=== PATIENT | female | born 1940 | race Caucasian/White ===

== ENCOUNTER 2019-01-04 06:23 | Day surgery (SDC) | payer OTHER ==
[~2019-01-04 06:23] MED LIST: ALPR.5; Aspir 8181 MG; BENADRYL25 MG; CETI5; FURO20; GABA300; HYDR1TAB94; LOSA50; METF500 PO; Metrocream45 GM; Norvasc10 MG; OXYB5 PO; POTA10T
--- NOTE | 2019-01-04 07:35 | NUR ---
01/04/19 0735 Beatriz Sinclair 1ST IV ATTEMPT IN THE RIGHT HAND WITH 18G; IV BLEW. IV SUCCESFFULLY STARTED IN THE RIGHT FOREARM. PT TOLERATED BOTH ATTEMPTS WELL.
--- NOTE | 2019-01-04 09:57 | NUR ---
01/04/19 0957 Gabriel Coates PT RESTING ON RECLINER. PT DENIES ANY PAIN AT THIS TIME. PT TOLERATING SNACKS. VS WNL. FAMILY MEMBERIN THE ROOM CONVERSING WITH PT. POLAR PACK INTACT. WILL CONTINUE TO MONITOR.
== END 2019-01-04 11:02 | disposition home or self-care (01) ==
LOC: ORSCSDS 06:23
PROVIDERS: Orthopaedic Surgery
PROC: 0LQ24ZZ Repair Left Shoulder Tendon, Percutaneous Endoscopic Approach (ICD-10-PCS; principal; 2019-01-04 07:30)
PROC: 0RBK4ZZ Excision of Left Shoulder Joint, Percutaneous Endoscopic Approach (ICD-10-PCS; principal; 2019-01-04 07:30)
PROC: 0RNK4ZZ Release Left Shoulder Joint, Percutaneous Endoscopic Approach (ICD-10-PCS; principal; 2019-01-04 07:30)
DX: M19.012 Primary osteoarthritis, left shoulder (principal); M75.122 Complete rotator cuff tear or rupture of left shoulder, not specified as traumatic; S46.102A Unspecified injury of muscle, fascia and tendon of long head of biceps, left arm, initial encounter; M75.52 Bursitis of left shoulder; I10 Essential (primary) hypertension; G47.33 Obstructive sleep apnea (adult) (pediatric); E11.9 Type 2 diabetes mellitus without complications; F41.9 Anxiety disorder, unspecified; Z79.899 Other long term (current) drug therapy
CPT/HCPCS: 82947; C1713; J0171; J1100; J1885; J2250; J2405; J2704; J2795; J3010; J7120

== ENCOUNTER 2020-02-15 08:14 | Day surgery (SDC) | payer OTHER ==
[~2020-02-15] VITALS: Ht 172.7 cm; Wt 59.3 kg
[~2020-02-15 08:14] MED LIST changes: -ALPR.5; +ALPR.5 PO; -BENADRYL25 MG; +BENADRYL25 MG PO; -CETI5; +CETI5 PO; +Caltrate-600 W1 EACH PO; -FURO20; +FURO20 PO; -GABA300; +GABA300 PO; +HIPREX1 G1 PO; -HYDR1TAB94; +HYDR1TAB94 PO; +KEFLEX500 MG PO; +LACT PO; -LOSA50; +LOSA50 PO; +METAMUCIL POWD575 GM PO; +METO5A PO; +MIRALAX17 GM PO; -Norvasc10 MG; +Norvasc10 MG PO; +OMEP20ER PO; +ONDA8 PO; +PENVK250 PO; -POTA10T; +POTA10T PO; +Robaxin750 MG PO
[2020-02-15] MEDS ORDERED: PENVK250 PO (09:04)
== END 2020-02-15 11:30 | disposition home or self-care (01) ==
LOC: ORSCSDS 08:14
PROVIDERS: Orthopaedic Surgery
PROC: 3E0U3BZ Introduction of Anesthetic Agent into Joints, Percutaneous Approach (ICD-10-PCS; principal; 2020-02-15 09:30)
PROC: 0JBL0ZZ Excision of Right Upper Leg Subcutaneous Tissue and Fascia, Open Approach (ICD-10-PCS; principal; 2020-02-15 09:30)
DX: M77.9 Enthesopathy, unspecified (principal); R22.41 Localized swelling, mass and lump, right lower limb; L92.8 Other granulomatous disorders of the skin and subcutaneous tissue; I10 Essential (primary) hypertension; E11.9 Type 2 diabetes mellitus without complications; K21.9 Gastro-esophageal reflux disease without esophagitis; Z79.84 Long term (current) use of oral hypoglycemic drugs; Z79.899 Other long term (current) drug therapy
CPT/HCPCS: 82947; J0171; J0690; J1200; J2250; J2310; J2405; J3010; J3301; J7120

== ENCOUNTER 2020-05-17 06:14 | Observation (INO) | payer OTHER, SELFPAY ==
[~2020-05-17] VITALS: Ht 157.5 cm; Wt 65.8 kg
[~2020-05-17 06:14] MED LIST changes: +AMLO5 PO; -Aspir 8181 MG; +Aspir 8181 MG PO; -Metrocream45 GM; +Metrocream45 GM VAG; -Norvasc10 MG PO
[2020-05-17 06:43] LABS: BASOPHILS ABSOLUTE AUTO 0.05 K/mm3 (0.00-0.23); BASOPHILS PERCENT AUTO 1 % (0-2); EOSINOPHILS ABSOLUTE AUTO 0.23 K/mm3 (0.00-0.68); EOSINOPHILS PERCENT AUTO 5 % (0-6); Hematocrit 42.5 % (33.0-51.0); Hemoglobin 14.3 g/dL (11.5-16.0); IMMATURE GRAN ABSOLUTE AUTO 0.02 K/mm3 (0.00-0.10); IMMATURE GRAN PERCENT AUTO 0 % (0-1); LYMPHOCYTES ABSOLUTE AUTO 2.06 K/mm3 (0.84-5.20); LYMPHOCYTES PERCENT AUTO 40 % (21-46); MONOCYTES PERCENT AUTO 10 % (4-13); Mean Corpuscular HGB 29.7 pg (26.0-34.0); Mean Corpuscular HGB Conc 33.6 g/dL (31.5-36.5); Mean Corpuscular Volume 88 fL (80-100); Mean Platelet Volume 9.2 fL (9.1-12.4); NEUTROPHILS ABSOLUTE AUTO 2.26 K/mm3 (1.96-9.15); NEUTROPHILS PERCENT AUTO 44 % (41-73); Platelet Count 241 K/mm3 (150-400); RDW Coefficient Variation 13.2 % (11.7-14.2); RDW Standard Deviation 42.8 fL (35.1-46.3); Red Blood Cell Count 4.82 M/mm3 (3.80-5.20); White Blood Cell Count 5.12 K/mm3 (4.00-11.30)
[2020-05-17 07:02] LABS: Alanine Aminotransfer (ALT/SGP 40 U/L (12-78); Albumin, Blood 4.1 g/dL (3.4-5.0); Albumin/Globulin Ratio 1.3 (0.8-1.8); Alk Phos 108 U/L (50-136); Anion Gap 8 mmol/L (6-16); Aspartate Aminotrans (AST/SGOT 25 U/L (12-37); Bilirubin, Total 0.4 mg/dL (0.1-1.0); Blood Urea Nitrogen 6 mg/dL (8-24); Bun/Creatinine Ratio 13.6 (12.0-20.0); CO2, Blood 25 mmol/L (21-32); Calcium, Blood 8.9 mg/dL (8.5-10.1); Chloride, Blood 103 mmol/L (98-108); Creatinine, Blood 0.44 mg/dL (0.40-1.00); Globulin, Blood 3.2 g/dL (2.2-4.0); Glomerular Filtration Rate >60 (60-); Glucose, Blood 135 mg/dL (70-99); Potassium, Blood 3.8 mmol/L (3.5-5.5); Sodium, Blood 136 mmol/L (136-145); Total Protein, Blood 7.3 g/dL (6.4-8.2); Troponin I <0.015 ng/mL (0.000-0.040)
[2020-05-17] MEDS ORDERED: NYSTRIT TOP (07:55)
[2020-05-17] MEDS ORDERED: METF500 PO (07:56)
[2020-05-17] MEDS ORDERED: CRANBERRY500 M1 PO (07:56)
[2020-05-17] MEDS ORDERED: Estrace Vagin42.5 GM PV (07:57)
[2020-05-17] MEDS ORDERED: Cetirizine HCl10 MG PO (11:55)
[2020-05-17] MEDS ORDERED: TRIM100 PO (11:56)
[2020-05-17] MEDS ORDERED: ALPR1 PO (11:56)
[2020-05-17] MEDS ORDERED: ESTRADIOL42.5 GM VAG (11:56)
[2020-05-17] MEDS ORDERED: AMLODIPINE BESY10 MG PO (11:58)
[2020-05-17] MEDS ORDERED: Oxybutynin Chlo10 MG PO (11:58)
[2020-05-17] MEDS ORDERED: Methocarbamol750 MG PO (11:58)
[2020-05-17] MEDS ORDERED: NEURONTIN300 MG PO (11:58)
[2020-05-17] MEDS ORDERED: POTA10T PO (11:59)
[2020-05-17] MEDS ORDERED: METO5A PO (11:59)
[2020-05-17] MEDS ORDERED: LOSA50 PO (11:59)
--- NOTE | 2020-05-17 14:15 | NUR ---
Echocardiogram completed.
[2020-05-17] MEDS ORDERED: METO25 PO (18:44)
[2020-05-17] MEDS ORDERED: XARELTO20 MG PO (18:44)
--- NOTE | 2020-05-17 19:34 | NUR ---
PATIENT DISCHARGE: PATIENT DISCHARGED TO HOME THIS SHIFT. MEDICATION RECONCILIATION COMPLETED; MED LIST FAXED TO [facility]. DISCHARGE EDUCATION COMPLETED WITH PATIENT. PATIENT TRANSPORTED TO EXIT BY [facility] STAFF WITH WHEELCHAIR AT 1920. PATIENT DEPARTED [facility] VIA PRIVATE AUTO.
== END 2020-05-17 19:17 | disposition home or self-care (01) ==
LOC: ER 06:14 → ERHOLD 06:15 → MEDS 15:45
PROVIDERS: Emergency Medicine; ADMIT Family Medicine
DX: I48.91 Unspecified atrial fibrillation (principal); E11.9 Type 2 diabetes mellitus without complications; I10 Essential (primary) hypertension; G89.4 Chronic pain syndrome; N32.81 Overactive bladder; G47.33 Obstructive sleep apnea (adult) (pediatric); K21.9 Gastro-esophageal reflux disease without esophagitis; Z91.19 Patient's noncompliance with other medical treatment and regimen; Z88.6 Allergy status to analgesic agent; Z88.2 Allergy status to sulfonamides; Z88.8 Allergy status to other drugs, medicaments and biological substances; Z79.82 Long term (current) use of aspirin; Z90.3 Acquired absence of stomach [part of]; Z87.891 Personal history of nicotine dependence; Z79.84 Long term (current) use of oral hypoglycemic drugs; Z87.11 Personal history of peptic ulcer disease; Z87.440 Personal history of urinary (tract) infections; Z79.891 Long term (current) use of opiate analgesic
CPT/HCPCS: 71045; 80053; 82947; 83735; 83880; 84443; 84484; 85025; 93005; 93010; 93306; 96374; 96375; 96376; 99285-25; A9270; G0378; J2405

== ENCOUNTER 2020-07-28 17:09 | Emergency (ER) | payer OTHER, SELFPAY ==
[~2020-07-28] VITALS: Ht 167.6 cm; Wt 56.7 kg
[~2020-07-28 17:09] MED LIST changes: +ALPR1 PO; +AMLODIPINE BESY10 MG PO; +CRANBERRY500 M1 PO; +Cetirizine HCl10 MG PO; +ESTRADIOL42.5 GM VAG; +Estrace Vagin42.5 GM PV; +METO25 PO; +Methocarbamol750 MG PO; +NEURONTIN300 MG PO; +NYSTRIT TOP; +Oxybutynin Chlo10 MG PO; +TRIM100 PO; +XARELTO20 MG PO
[2020-07-28 17:52] LABS: BASOPHILS ABSOLUTE AUTO 0.04 K/mm3 (0.00-0.23); BASOPHILS PERCENT AUTO 1 % (0-2); EOSINOPHILS ABSOLUTE AUTO 0.07 K/mm3 (0.00-0.68); EOSINOPHILS PERCENT AUTO 1 % (0-6); Hematocrit 40.2 % (33.0-51.0); Hemoglobin 13.7 g/dL (11.5-16.0); IMMATURE GRAN ABSOLUTE AUTO 0.02 K/mm3 (0.00-0.10); IMMATURE GRAN PERCENT AUTO 0 % (0-1); LYMPHOCYTES ABSOLUTE AUTO 1.36 K/mm3 (0.84-5.20); LYMPHOCYTES PERCENT AUTO 22 % (21-46); MONOCYTES ABSOLUTE AUTO 0.52 K/mm3 (0.16-1.47); MONOCYTES PERCENT AUTO 9 % (4-13); Mean Corpuscular HGB 29.4 pg (26.0-34.0); Mean Corpuscular HGB Conc 34.1 g/dL (31.5-36.5); Mean Corpuscular Volume 86 fL (80-100); Mean Platelet Volume 9.1 fL (9.1-12.4); NEUTROPHILS PERCENT AUTO 67 % (41-73); Platelet Count 256 K/mm3 (150-400); RDW Coefficient Variation 12.7 % (11.7-14.2); RDW Standard Deviation 39.7 fL (35.1-46.3); Red Blood Cell Count 4.66 M/mm3 (3.80-5.20); White Blood Cell Count 6.11 K/mm3 (4.00-11.30)
[2020-07-28 18:14] LABS: Alanine Aminotransfer (ALT/SGP 37 U/L (12-78); Albumin, Blood 3.9 g/dL (3.4-5.0); Albumin/Globulin Ratio 1.1 (0.8-1.8); Alk Phos 100 U/L (50-136); Anion Gap 6 mmol/L (6-16); Aspartate Aminotrans (AST/SGOT 11 U/L (12-37); Bilirubin, Total 0.4 mg/dL (0.1-1.0); Blood Urea Nitrogen 11 mg/dL (8-24); Bun/Creatinine Ratio 21.5 (12.0-20.0); CO2, Blood 24 mmol/L (21-32); Calcium, Blood 8.8 mg/dL (8.5-10.1); Chloride, Blood 103 mmol/L (98-108); Creatinine, Blood 0.51 mg/dL (0.40-1.00); Globulin, Blood 3.4 g/dL (2.2-4.0); Glomerular Filtration Rate >60 (60-); Glucose, Blood 228 mg/dL (70-99); Potassium, Blood 3.9 mmol/L (3.5-5.5); Sodium, Blood 133 mmol/L (136-145); Total Protein, Blood 7.3 g/dL (6.4-8.2); Troponin I <0.015 ng/mL (0.000-0.040)
[2020-07-28] MEDS ORDERED: ONDA4 PO ×2 (19:47)
== END 2020-07-28 20:40 | disposition home or self-care (01) ==
LOC: ER 17:09
PROVIDERS: Physician Assistant
DX: R00.2 Palpitations (principal); E11.9 Type 2 diabetes mellitus without complications; I10 Essential (primary) hypertension; Z79.899 Other long term (current) drug therapy; Z88.2 Allergy status to sulfonamides; Z88.6 Allergy status to analgesic agent; Z88.8 Allergy status to other drugs, medicaments and biological substances; Z79.1 Long term (current) use of non-steroidal anti-inflammatories (NSAID)
CPT/HCPCS: 36415; 71046; 80053; 82947; 84484; 85025; 93005; 93010; 99285-25

== ENCOUNTER 2020-09-19 03:30 | Inpatient (IN) | payer OTHER, MEDICARE ==
[~2020-09-19] VITALS: Ht 167.6 cm; Wt 57.7 kg
[~2020-09-19 03:30] MED LIST changes: +ONDA4 PO
[2020-09-19 03:48] LABS: BASOPHILS ABSOLUTE AUTO 0.04 K/mm3 (0.00-0.23); BASOPHILS PERCENT AUTO 1 % (0-2); EOSINOPHILS ABSOLUTE AUTO 0.15 K/mm3 (0.00-0.68); EOSINOPHILS PERCENT AUTO 3 % (0-6); Hematocrit 34.9 % (33.0-51.0); Hemoglobin 12.5 g/dL (11.5-16.0); IMMATURE GRAN ABSOLUTE AUTO 0.01 K/mm3 (0.00-0.10); IMMATURE GRAN PERCENT AUTO 0 % (0-1); LYMPHOCYTES ABSOLUTE AUTO 1.44 K/mm3 (0.84-5.20); LYMPHOCYTES PERCENT AUTO 33 % (21-46); MONOCYTES PERCENT AUTO 14 % (4-13); Mean Corpuscular HGB 29.5 pg (26.0-34.0); Mean Corpuscular HGB Conc 35.8 g/dL (31.5-36.5); Mean Corpuscular Volume 82 fL (80-100); Mean Platelet Volume 8.7 fL (9.1-12.4); NEUTROPHILS ABSOLUTE AUTO 2.11 K/mm3 (1.96-9.15); NEUTROPHILS PERCENT AUTO 49 % (41-73); Platelet Count 206 K/mm3 (150-400); RDW Coefficient Variation 12.3 % (11.7-14.2); RDW Standard Deviation 37.5 fL (35.1-46.3); Red Blood Cell Count 4.24 M/mm3 (3.80-5.20); White Blood Cell Count 4.35 K/mm3 (4.00-11.30)
[2020-09-19 04:04] LABS: Source, Urine Catheter
[2020-09-19 04:06] LABS: Bilirubin, Urine Neg (Neg); Blood, Urine Neg (Neg); Glucose Qualitative, Urine Neg (Neg); Ketones, Urine Neg (Neg); Leukocyte Esterase, Urine Neg (Neg); Nitrite, Urine Neg (Neg); Protein, Urine Neg (Neg); Specific Gravity, Urine 1.005 (1.003-1.022); Urobilinogen, Urine NORM (Normal)
[2020-09-19 04:07] LABS: Troponin I <0.015 ng/mL (0.000-0.040)
[2020-09-19 04:14] LABS: Alanine Aminotransfer (ALT/SGP 28 U/L (12-78); Albumin/Globulin Ratio 1.4 (0.8-1.8); Alk Phos 85 U/L (50-136); Anion Gap 8 mmol/L (6-16); Aspartate Aminotrans (AST/SGOT 18 U/L (12-37); Bilirubin, Total 0.5 mg/dL (0.1-1.0); Blood Urea Nitrogen 5 mg/dL (8-24); Bun/Creatinine Ratio 9.2 (12.0-20.0); CO2, Blood 25 mmol/L (21-32); Calcium, Blood 8.3 mg/dL (8.5-10.1); Chloride, Blood 83 mmol/L (98-108); Creatinine, Blood 0.54 mg/dL (0.40-1.00); Globulin, Blood 2.9 g/dL (2.2-4.0); Glomerular Filtration Rate >60 (60-); Glucose, Blood 103 mg/dL (70-99); Sodium, Blood 116 mmol/L (136-145); Total Protein, Blood 6.9 g/dL (6.4-8.2)
[2020-09-19 04:15] LABS: Appearance, Urine Clear (Clear); Color, Urine Pale Yellow (P-Yellow)
--- NOTE | 2020-09-19 08:00 | NUR ---
AM NOTE... PT ARRIVED ON UNIT VIA GURNEY AT 0745. PT IS A&Ox4 AND ADMITTED FOR HYPONATREMIA. PT DENIES ANY CHEST PAIN/PRESSURE OR SOB AT THIS TIME. PT IS C/O OF SOME NAUSEA, PT MEDICATED PER EMAR WITH GOOD RESULTS. PT IS IN NSR IN THE 60'S-70'S. BP STABLE. NO EDEMA NOTED ON ASSESSMENT. L/S CLEAR T/O ON RA. BT PRESENT AND HYPOACTIVE,ABD IS SOFT AND NONTENDER TO PALP. PT HAS SKIN TEAR TO THE BACK OF HER RIGHT UPPER ARM FROM A FALL AT HOME. RILEY IS PRESENT, PATENT AND DRAINING CLEAR YELLOW URINE TO GRAVITY. PT HAS STATED THAT SHE HAS HAD "SEVERAL LOW BLOOD SUGARS AT HOME, MY LAST LOW WAS 37 THE OTHER NIGHT." PT'S CBG CHECKS ARE ACHS. PT STATED SHE WILL ALERT STAFF IF SHE FEELS LIKE SHE MIGHT BE LOW. PT PLACED ON A 1500MLS FLUID RESTRICTION. PT EDUCATED ON CURRENT CONDITION, FLUID RESTRICTION AND PLAN OF CARE. PT VERBALIZED HER UNDERSTANDING. CALL LIGHT IN REACH WILL CONTINUE TO MONITOR.
--- NOTE | 2020-09-19 11:30 | NUR ---
PT REPORTS DIFFICULTY SWALLOWING GABAPENTIN CAPSULE. PT REPORTS HX OF ESOPHAGEAL STRICTURE THAT SHE HAS HAD "STRETCHED" IN THE PAST STS THAT SHE CURRENTLY FEELS LIKE SHE DID WHEN SHE NEEDED PREVIOUS "STRETCHING" PRIMARY RN DEMI NOTIFIED, WHO CALLED DR YOO FOR SPEECH THERAPY EVALUATION. PT'S SPO2 REMAINED AT 98% AND GREATER T/O THE EVENT. PT REPORTS THAT AT HOME SHE NEEDS TO USE A MULTITUDE OF MEDIA TO ASSIST HER IN SWALLOWING STS SHE USES "CLUB SODE, WARM WATER, APPLESAUCE, AND BUTTER" TO SWALLOW PILLS AT HOME. ORDER PLACED FOR SPEECH EVAL. AFTER SWALLOWWING DIFFICULTY PT THEN STS "MY HAS TO GIVE ME THE MANUEVER FREQUENTLY" WHICH SHE HAD NOT EXPRESSED PRIOR TO MEDICATION ADMINISTRATION. PT ALSO STS THAT SHE TAKES HER ESTRADIAL AT [facility] SO SCHEDULED DOSE WAS CHANGED TO 2100
[2020-09-19] MEDS ORDERED: CLON.1 PO (11:58)
[2020-09-19 12:34] LABS: Anion Gap 6 mmol/L (6-16); Blood Urea Nitrogen 3 mg/dL (8-24); Bun/Creatinine Ratio 6.5 (12.0-20.0); CO2, Blood 26 mmol/L (21-32); Calcium, Blood 8.3 mg/dL (8.5-10.1); Chloride, Blood 95 mmol/L (98-108); Creatinine, Blood 0.46 mg/dL (0.40-1.00); Glomerular Filtration Rate >60 (60-); Glucose, Blood 145 mg/dL (70-99); Potassium, Blood 3.3 mmol/L (3.5-5.5)
[2020-09-19 12:35] LABS: Sodium, Blood 127 mmol/L (136-145)
--- NOTE | 2020-09-19 12:48 | NUR ---
PT UPDATE... PT IS CURRENTLY NPO D/T GETTING A PILL STUCK IN HER THROAT. PT STATED THAT SHE HAS SWALLOW ISSUES AT HOME WELL. ST EVALUATION PLACED FOR THE PT. PT TO BE NPO UNTIL ST EVAL. PROVIDER NOTIFIED. PT IS TO TRANSFER TO MEDICAL FLOOR. REPORT CALLED TO [place] [facility]. WILL CONTINUE TO MONITOR UNTIL PT IS TRANSFERED.
--- NOTE | 2020-09-19 18:13 | NUR ---
SHIFT SUMMARY PT ICU TRANSFER. SHE WAS ADMITTED FOR HYPONATREMIA WHICH RESULTED IN A FALL AT HOME. THE PATIENT IS IND AT [employer] AND IS HER 'S CAREGIVER. SHE IS A/O X3; PLEASANT AND COOPERATIVE WITH CARE. UP IN A CHAIR WITH CHAIR ALARM IN PLACE. VSS.
--- NOTE | 2020-09-19 22:35 | NUR ---
PHYSICIAN COMMUNICATION CONTACTED EMAIL MARKETING EXECUTIVE PHYSICIAN, DR LAWRENCE, TO NOTIFY HER THAT THE PATIENT HAD A CPAP SENT FROM HOME THAT NEEDED TO BE SET UP. THIS RN ASKED FOR AN ORDER FOR RT TO SET UP THE PATIENT'S HOME CPAP AND OXIMETRY. DR LAWRENCE APPROVED THE ORDER.
[2020-09-20 04:53] LABS: BASOPHILS ABSOLUTE AUTO 0.05 K/mm3 (0.00-0.23); BASOPHILS PERCENT AUTO 1 % (0-2); EOSINOPHILS ABSOLUTE AUTO 0.08 K/mm3 (0.00-0.68); EOSINOPHILS PERCENT AUTO 2 % (0-6); Hematocrit 35.8 % (33.0-51.0); Hemoglobin 12.4 g/dL (11.5-16.0); IMMATURE GRAN ABSOLUTE AUTO 0.01 K/mm3 (0.00-0.10); IMMATURE GRAN PERCENT AUTO 0 % (0-1); LYMPHOCYTES ABSOLUTE AUTO 0.81 K/mm3 (0.84-5.20); LYMPHOCYTES PERCENT AUTO 19 % (21-46); MONOCYTES ABSOLUTE AUTO 0.63 K/mm3 (0.16-1.47); MONOCYTES PERCENT AUTO 15 % (4-13); Mean Corpuscular HGB 29.5 pg (26.0-34.0); Mean Corpuscular HGB Conc 34.6 g/dL (31.5-36.5); Mean Corpuscular Volume 85 fL (80-100); Mean Platelet Volume 8.9 fL (9.1-12.4); NEUTROPHILS ABSOLUTE AUTO 2.66 K/mm3 (1.96-9.15); NEUTROPHILS PERCENT AUTO 63 % (41-73); Platelet Count 215 K/mm3 (150-400); RDW Coefficient Variation 13.2 % (11.7-14.2); RDW Standard Deviation 40.6 fL (35.1-46.3); White Blood Cell Count 4.24 K/mm3 (4.00-11.30)
[2020-09-20 05:14] LABS: Albumin, Blood 3.5 g/dL (3.4-5.0); Anion Gap 6 mmol/L (6-16); Blood Urea Nitrogen 6 mg/dL (8-24); Bun/Creatinine Ratio 6.8 (12.0-20.0); CO2, Blood 24 mmol/L (21-32); Calcium, Blood 8.5 mg/dL (8.5-10.1); Chloride, Blood 97 mmol/L (98-108); Creatinine, Blood 0.88 mg/dL (0.40-1.00); Glomerular Filtration Rate >60 (60-); Glucose, Blood 134 mg/dL (70-99); Magnesium, Blood 2.2 mg/dL (1.6-2.4); Phosphorus, Blood 4.3 mg/dL (2.5-4.9); Potassium, Blood 4.2 mmol/L (3.5-5.5); Sodium, Blood 127 mmol/L (136-145)
--- NOTE | 2020-09-20 06:26 | NUR ---
SHIFT SUMMARY PATIENT ALERT AND ORIENTED. HAD NO COMPLAINTS OF PAIN OR SHORTNESS OF BREATH. NO ACUTE ISSUES NOTED OVERNIGHT. IV PATENT AND FLUSHED. BED IN LOWEST POSITION WITH WHEELS LOCKED AND ALARM ON. CALL LIGHT WITHIN REACH. REPORT GIVEN TO ONCOMING RN.
[2020-09-20] MEDS ORDERED: ACET325 PO (11:35)
[2020-09-20] MEDS ORDERED: SODCHL1 PO (11:35)
--- NOTE | 2020-09-20 18:27 | NUR ---
PATIENT DISCHARGE: PATIENT DISCHARGED TO HOME THIS SHIFT. MEDICATION RECONCILIATION COMPLETED; MED L[facility]. DISCHARGE EDUCATION COMPLETED WITH PATIENT AND FAMILY. PATIENT TRANSPORTED TO EXIT BY [facility] STAFF WITH WHEELCHAIR AT 1323. PATIENT DEPARTED [facility] VIA PRIVATE AUTO.
== END 2020-09-20 13:23 | disposition home or self-care (01) | DRG 641 ==
LOC: ER 03:30 → ERHOLD 05:22 → ICUW 07:46 → MEDS 13:41
PROVIDERS: Emergency Medicine; Family Medicine; ADMIT Internal Medicine
DX: E87.1 Hypo-osmolality and hyponatremia (principal); F11.20 Opioid dependence, uncomplicated; M79.7 Fibromyalgia; E11.9 Type 2 diabetes mellitus without complications; F32.9 Major depressive disorder, single episode, unspecified; I69.398 Other sequelae of cerebral infarction; I10 Essential (primary) hypertension; G47.33 Obstructive sleep apnea (adult) (pediatric); G89.4 Chronic pain syndrome; Z96.641 Presence of right artificial hip joint; Z90.49 Acquired absence of other specified parts of digestive tract; Z98.890 Other specified postprocedural states; Z88.2 Allergy status to sulfonamides; Z88.6 Allergy status to analgesic agent; Z88.8 Allergy status to other drugs, medicaments and biological substances; Z79.899 Other long term (current) drug therapy; Z90.722 Acquired absence of ovaries, bilateral
CPT/HCPCS: 36415; 51701; 51702; 73502; 80048; 80053; 80069; 81003; 82947; 83735; 83930; 83935; 84295; 84300; 84484; 85025; 92610; 93005; 93010; 94762; 96360-59; 97116; 97162; 97166; 97530; 99285-25; A9270; J1650; J2405; J7030; J7050; J7060

== ENCOUNTER 2020-12-03 07:37 | Day surgery (SDC) | payer OTHER ==
[~2020-12-03 07:37] MED LIST changes: +ACET325 PO; +CLON.1 PO; +FURO20; +SODCHL1 PO
== END 2020-12-03 09:35 | disposition home or self-care (01) ==
LOC: ORSCSDS 07:37
PROVIDERS: Internal Medicine Gastroenterology
PROC: 0DB58ZX Excision of Esophagus, Via Natural or Artificial Opening Endoscopic, Diagnostic (ICD-10-PCS; principal; 2020-12-03 09:00)
PROC: 0D758ZZ Dilation of Esophagus, Via Natural or Artificial Opening Endoscopic (ICD-10-PCS; principal; 2020-12-03 09:00)
DX: R13.10 Dysphagia, unspecified (principal); K20.90 Esophagitis, unspecified without bleeding; Z98.84 Bariatric surgery status; Z79.899 Other long term (current) drug therapy; E11.9 Type 2 diabetes mellitus without complications; I48.91 Unspecified atrial fibrillation; I10 Essential (primary) hypertension; E78.5 Hyperlipidemia, unspecified; G47.30 Sleep apnea, unspecified; Z79.01 Long term (current) use of anticoagulants
CPT/HCPCS: 82947; 88305; 88312; J2704; J7120

== ENCOUNTER 2021-06-27 23:14 | Inpatient (IN) | payer OTHER, MEDICARE ==
[~2021-06-27] VITALS: Ht 167.6 cm; Wt 66.9 kg
[2021-06-27 23:40] LABS: BASOPHILS ABSOLUTE AUTO 0.01 K/mm3 (0.00-0.23); BASOPHILS PERCENT AUTO 0 % (0-2); EOSINOPHILS ABSOLUTE AUTO 0.01 K/mm3 (0.00-0.68); EOSINOPHILS PERCENT AUTO 0 % (0-6); Hematocrit 29.3 % (33.0-51.0); Hemoglobin 9.6 g/dL (11.5-16.0); IMMATURE GRAN ABSOLUTE AUTO 0.01 K/mm3 (0.00-0.10); IMMATURE GRAN PERCENT AUTO 0 % (0-1); LYMPHOCYTES ABSOLUTE AUTO 0.38 K/mm3 (0.84-5.20); LYMPHOCYTES PERCENT AUTO 12 % (21-46); MONOCYTES ABSOLUTE AUTO 0.29 K/mm3 (0.16-1.47); MONOCYTES PERCENT AUTO 9 % (4-13); Mean Corpuscular HGB 26.1 pg (26.0-34.0); Mean Corpuscular HGB Conc 32.8 g/dL (31.5-36.5); Mean Corpuscular Volume 80 fL (80-100); Mean Platelet Volume 9.7 fL (9.1-12.4); NEUTROPHILS ABSOLUTE AUTO 2.49 K/mm3 (1.96-9.15); NEUTROPHILS PERCENT AUTO 78 % (41-73); Platelet Count 170 K/mm3 (150-400); RDW Coefficient Variation 16.1 % (11.7-14.2); RDW Standard Deviation 46.6 fL (35.1-46.3); Red Blood Cell Count 3.68 M/mm3 (3.80-5.20); White Blood Cell Count 3.19 K/mm3 (4.00-11.30)
[2021-06-27 23:53] LABS: Alanine Aminotransfer (ALT/SGP 15 U/L (12-78); Albumin, Blood 3.1 g/dL (3.4-5.0); Albumin/Globulin Ratio 1.1 (0.8-1.8); Alk Phos 60 U/L (50-136); Anion Gap 6 mmol/L (6-16); Aspartate Aminotrans (AST/SGOT 13 U/L (12-37); Bilirubin, Total 0.4 mg/dL (0.1-1.0); Blood Urea Nitrogen 10 mg/dL (8-24); Bun/Creatinine Ratio 15.8 (12.0-20.0); CO2, Blood 21 mmol/L (21-32); Calcium, Blood 7.8 mg/dL (8.5-10.1); Chloride, Blood 102 mmol/L (98-108); Creatinine, Blood 0.63 mg/dL (0.40-1.00); Globulin, Blood 2.8 g/dL (2.2-4.0); Glomerular Filtration Rate >60 (60-); Glucose, Blood 147 mg/dL (70-99); Potassium, Blood 4.1 mmol/L (3.5-5.5); Sodium, Blood 129 mmol/L (136-145); Total Protein, Blood 5.9 g/dL (6.4-8.2)
[2021-06-28 03:48] LABS: BASOPHILS ABSOLUTE AUTO 0.02 K/mm3 (0.00-0.23); BASOPHILS PERCENT AUTO 1 % (0-2); EOSINOPHILS ABSOLUTE AUTO 0.01 K/mm3 (0.00-0.68); EOSINOPHILS PERCENT AUTO 0 % (0-6); Hematocrit 28.4 % (33.0-51.0); Hemoglobin 9.3 g/dL (11.5-16.0); IMMATURE GRAN ABSOLUTE AUTO 0.01 K/mm3 (0.00-0.10); IMMATURE GRAN PERCENT AUTO 0 % (0-1); LYMPHOCYTES ABSOLUTE AUTO 0.54 K/mm3 (0.84-5.20); LYMPHOCYTES PERCENT AUTO 22 % (21-46); MONOCYTES PERCENT AUTO 12 % (4-13); Mean Corpuscular HGB Conc 32.7 g/dL (31.5-36.5); Mean Corpuscular Volume 79 fL (80-100); Mean Platelet Volume 9.7 fL (9.1-12.4); NEUTROPHILS ABSOLUTE AUTO 1.58 K/mm3 (1.96-9.15); NEUTROPHILS PERCENT AUTO 64 % (41-73); Platelet Count 162 K/mm3 (150-400); RDW Coefficient Variation 16.1 % (11.7-14.2); RDW Standard Deviation 46.8 fL (35.1-46.3); Red Blood Cell Count 3.58 M/mm3 (3.80-5.20); White Blood Cell Count 2.46 K/mm3 (4.00-11.30)
[2021-06-28 03:50] LABS: Influenza A, PCR NEGATIVE (NEGATIVE); Influenza B, PCR NEGATIVE (NEGATIVE); Resp Syncytial Virus, PCR NEGATIVE (NEGATIVE); SARS-Cov-2 (COVID-19) PCR, MMC NEGATIVE (NEGATIVE)
[2021-06-28 04:04] LABS: Alanine Aminotransfer (ALT/SGP 18 U/L (12-78); Albumin, Blood 2.9 g/dL (3.4-5.0); Alk Phos 57 U/L (50-136); Anion Gap 5 mmol/L (6-16); Aspartate Aminotrans (AST/SGOT 12 U/L (12-37); Bilirubin, Total 0.4 mg/dL (0.1-1.0); Blood Urea Nitrogen 8 mg/dL (8-24); CO2, Blood 23 mmol/L (21-32); Calcium, Blood 7.8 mg/dL (8.5-10.1); Chloride, Blood 104 mmol/L (98-108); Creatinine, Blood 0.57 mg/dL (0.40-1.00); Globulin, Blood 2.8 g/dL (2.2-4.0); Glomerular Filtration Rate >60 (60-); Glucose, Blood 119 mg/dL (70-99); Potassium, Blood 4.1 mmol/L (3.5-5.5); Sodium, Blood 132 mmol/L (136-145); Total Protein, Blood 5.7 g/dL (6.4-8.2)
--- NOTE | 2021-06-28 05:37 | NUR ---
PATIENT IS A NEW ADMIT FROM THE ED. THREE PERSON TRANSFER FROM [facility] TO BED. AXOX 4 AND SBA W/FWW TO BS. NS INFUSING AT 250 mL/HR X ONE BAG FROM ED. RILEY PLACED IN ED PER ED RN. REPORTS PATIENT SELF CATHS AT HOME. TELEMETRY PLACED AND TECH REPORTS SB 59. ON ROOM AIR. NS CHANGED TO 75mL/HR PER ORDERS. DENIES CHEST PAIN, SOB, AND N/V. REPORTS ABDOMINAL/BACK PAIN. NO PAINS MEDS IN EMAR AT THIS TIME. PAIN MEDS IN MED RX. GI PANEL UNCOLLECTED. BLOOD CONSENT FORM SIGNED. MILD EDEMA BLE. PATIENT ORIENTED TO ROOM AND CALL LIGHT SYSTEM. WARM BLANKET PROVIDED AND PATIENT REQUEST TO GET SOME SLEEP. WCTM.
[2021-06-28 09:31] LABS: Hemoglobin 10.5 g/dL (11.5-16.0)
[2021-06-28 15:38] LABS: Adenovirus F 40/41 Not Detected (NOT DETECT); Astrovirus Not Detected (NOT DETECT); Campylobacter Sp Not Detected (NOT DETECT); Cryptosporidium Not Detected (NOT DETECT); Cyclospora Cayetanensis Not Detected (NOT DETECT); E. Coli O157 Not Detected (NOT DETECT); Entamoeba Histolytica Not Detected (NOT DETECT); Enteroaggregative E. coli-EAEC Not Detected (NOT DETECT); Enteropathogenic E. coli-EPEC Not Detected (NOT DETECT); Enterotoxigenic E. coli-ETEC Not Detected (NOT DETECT); Giardia Lamblia Not Detected (NOT DETECT); Norovirus GI/GII Detected (NOT DETECT); Plesiomonas Shigelloides Not Detected (NOT DETECT); Rotavirus A Not Detected (NOT DETECT); Salmonella Sp Not Detected (NOT DETECT); Sapovirus Not Detected (NOT DETECT); Shiga Toxin-prod E. coli-STEC Not Detected (NOT DETECT); Shigella/Enteroin E. coli-EIEC Not Detected (NOT DETECT); Vibrio Cholerae Not Detected (NOT DETECT); Vibrio Sp Not Detected (NOT DETECT); Yersinia Enterocolitica Not Detected (NOT DETECT)
[2021-06-28 15:48] LABS: Hematocrit 29.9 % (33.0-51.0); Hemoglobin 9.9 g/dL (11.5-16.0)
--- NOTE | 2021-06-28 18:46 | NUR ---
06/28/21 1846 Larisa Franklin History, Chart, Medications and Allergies reviewed before start of procedure. Patient confirms NPO status and agrees with scheduled surgery. 3-LEAD EKG REVIEWED WITH PHYSICIAN PRIOR TO START OF PROCEDURE. MONITOR INTACT WITH CONTINUOUS PULSE OXIMETRY AND INTERMITTENT BP. PATIENT DETERMINED TO BE ASA APPROPRIATE FOR PROPOFOL SEDATION PRIOR TO START OF PROCEDURE BY DR. MAYERS. Dr. Mayers evaluated airway and reports to this nurse no airway concerns.
--- NOTE | 2021-06-28 19:20 | NUR ---
DR MAYERS AT BEDSIDE SPEAKING WITH PATIENT ABOUT RESULTS OF EGD. DR MAYERS AWARE OF FEVER. NO NEW ORDERS PERTAINING TO FEVER.
--- NOTE | 2021-06-28 19:40 | NUR ---
WILL RETURN PATIENT TO ROOM WHEN NURSE AVAILABLE TO RESUME CARE.
[2021-06-28 21:36] LABS: Hematocrit 32.4 % (33.0-51.0); Hemoglobin 10.7 g/dL (11.5-16.0)
--- NOTE | 2021-06-29 03:28 | NUR ---
SHIFT SUMMARY PATIENT HAD NO ACUTE CHANGES OBSERVED. BACK FROM EGD AFTER SHIFT CHANGE. AXOX 3 AND ONE ASSIST TO BSC W/FWW. PIV REMAINS INTACT. OCCUP THER REPORTS NSR 71. DENIES CHEST PAIN, SOB, AND N/V. VSS/AFEBRILE. COOPERATIVE WITH CARE. ABLE TO SLEEP SECOND PART OF SHIFT. CALL LIGHT IN REACH. BED IN LOWEST POSITION. WILL CONTINUE TO MONITOR UNTIL DAY SHIFT NURSE ASSUMES CARE.
[2021-06-29 05:00] LABS: Hemoglobin 9.8 g/dL (11.5-16.0); Mean Corpuscular HGB 25.9 pg (26.0-34.0); Mean Corpuscular HGB Conc 32.7 g/dL (31.5-36.5); Mean Corpuscular Volume 79 fL (80-100); Mean Platelet Volume 9.9 fL (9.1-12.4); Platelet Count 188 K/mm3 (150-400); RDW Coefficient Variation 16.3 % (11.7-14.2); RDW Standard Deviation 47.1 fL (35.1-46.3); Red Blood Cell Count 3.78 M/mm3 (3.80-5.20); White Blood Cell Count 2.66 K/mm3 (4.00-11.30)
[2021-06-29 06:04] LABS: Alanine Aminotransfer (ALT/SGP 18 U/L (12-78); Albumin, Blood 2.7 g/dL (3.4-5.0); Albumin/Globulin Ratio 0.9 (0.8-1.8); Alk Phos 55 U/L (50-136); Anion Gap 6 mmol/L (6-16); Aspartate Aminotrans (AST/SGOT 15 U/L (12-37); Bilirubin, Total 0.4 mg/dL (0.1-1.0); Blood Urea Nitrogen 2 mg/dL (8-24); Bun/Creatinine Ratio 5.2 (12.0-20.0); CO2, Blood 24 mmol/L (21-32); Calcium, Blood 8.1 mg/dL (8.5-10.1); Chloride, Blood 106 mmol/L (98-108); Creatinine, Blood 0.38 mg/dL (0.40-1.00); Ferritin, Serum 27 ng/mL (8-252); Globulin, Blood 2.9 g/dL (2.2-4.0); Glomerular Filtration Rate >60 (60-); Glucose, Blood 110 mg/dL (70-99); Iron Serum 13 ug/dL (50-170); Percent Saturation 3.4 % (15.0-50.0); Potassium, Blood 3.4 mmol/L (3.5-5.5); Sodium, Blood 136 mmol/L (136-145); Total Iron Binding Capacity 383 ug/dL (250-450); Total Protein, Blood 5.6 g/dL (6.4-8.2)
--- NOTE | 2021-06-29 18:25 | NUR ---
PT IS A/OX3, PLEASANT AND COOPERATIVE. PT APPEARS TO BE BREATHING EASILY ON RA AT THIS TIME. THE PT WAS MEDICATED FOR CHRONIC PAIN. PT DIET WAS ADVANCED TO SOFT FOODS REQUESTED. PT WAS UP IN THE CHAIR TODAY AND WAS ASSISTED TO THE SHOWER. CALL LIGHT IN REACH. WILL CONTINUE TO MONITOR AND ASSESS FOR CHANGES
[2021-06-30 05:54] LABS: Hematocrit 31.9 % (33.0-51.0); Hemoglobin 10.5 g/dL (11.5-16.0); Mean Corpuscular HGB 26.1 pg (26.0-34.0); Mean Corpuscular HGB Conc 32.9 g/dL (31.5-36.5); Mean Corpuscular Volume 79 fL (80-100); Platelet Count 182 K/mm3 (150-400); RDW Coefficient Variation 15.9 % (11.7-14.2); RDW Standard Deviation 46.5 fL (35.1-46.3); Red Blood Cell Count 4.03 M/mm3 (3.80-5.20); White Blood Cell Count 3.47 K/mm3 (4.00-11.30)
[2021-06-30 06:03] LABS: Anion Gap 5 mmol/L (6-16); Blood Urea Nitrogen 1 mg/dL (8-24); Bun/Creatinine Ratio 2.7 (12.0-20.0); CO2, Blood 26 mmol/L (21-32); Calcium, Blood 8.1 mg/dL (8.5-10.1); Chloride, Blood 102 mmol/L (98-108); Creatinine, Blood 0.37 mg/dL (0.40-1.00); Glomerular Filtration Rate >60 (60-); Glucose, Blood 135 mg/dL (70-99); Magnesium, Blood 1.9 mg/dL (1.6-2.4); Potassium, Blood 3.7 mmol/L (3.5-5.5); Sodium, Blood 133 mmol/L (136-145)
--- NOTE | 2021-06-30 06:45 | NUR ---
SHIFT SUMMARY Pt a/o x 4, reports abd cramping and nausea, med per mar. Pt states she had some difficulty sleeping but rested calmly during the shift. Pt up to BSC x 2 but did not have any bm, montgomery patent with large amount clear, yellow urine noted. VSS, afebrile, anticipate d/c when medically stable.
--- NOTE | 2021-06-30 18:51 | NUR ---
PT IS A/OX4, PLEASANT AND COOPERATIVE, THE PT APPEARS TO BE BREATHING EASILY ON RA AT THIS TIME. THE PT WAS MEDICATED FOR CHRONIC PAIN WITH TYLENOL THIS AM SHE REQUESTED. THE WAS MEDICATED FOR NAUSEA X2 TODAY. THE PLAN WAS FOR THE PT TO BE DISCHARGED, HOWEVER SHE FELT THAT SHE WAS TO WEAK AND NOT QUITE READY FOR DC TODAY. DC WAS HELD. THE PT WAS UP TO THE CHAIR TODAY AND AMBULATED SOME IN THE ROOM. PTS STOOL WERE SOFT FORMED TODAY. CALL LIGHT IN REACH.
[2021-07-01 04:51] LABS: Hematocrit 31.3 % (33.0-51.0); Hemoglobin 10.3 g/dL (11.5-16.0); Mean Corpuscular HGB 25.9 pg (26.0-34.0); Mean Corpuscular HGB Conc 32.9 g/dL (31.5-36.5); Mean Corpuscular Volume 79 fL (80-100); Mean Platelet Volume 9.8 fL (9.1-12.4); Platelet Count 203 K/mm3 (150-400); RDW Coefficient Variation 15.9 % (11.7-14.2); RDW Standard Deviation 46.1 fL (35.1-46.3); Red Blood Cell Count 3.97 M/mm3 (3.80-5.20); White Blood Cell Count 4.37 K/mm3 (4.00-11.30)
[2021-07-01 04:56] LABS: Alanine Aminotransfer (ALT/SGP 14 U/L (12-78); Albumin, Blood 2.9 g/dL (3.4-5.0); Alk Phos 52 U/L (50-136); Anion Gap 6 mmol/L (6-16); Aspartate Aminotrans (AST/SGOT 12 U/L (12-37); Bilirubin, Total 0.4 mg/dL (0.1-1.0); Blood Urea Nitrogen 2 mg/dL (8-24); Bun/Creatinine Ratio 5.2 (12.0-20.0); CO2, Blood 26 mmol/L (21-32); Calcium, Blood 8.2 mg/dL (8.5-10.1); Chloride, Blood 103 mmol/L (98-108); Creatinine, Blood 0.39 mg/dL (0.40-1.00); Globulin, Blood 2.8 g/dL (2.2-4.0); Glomerular Filtration Rate >60 (60-); Glucose, Blood 115 mg/dL (70-99); Magnesium, Blood 1.8 mg/dL (1.6-2.4); Potassium, Blood 2.9 mmol/L (3.5-5.5); Sodium, Blood 135 mmol/L (136-145); Total Protein, Blood 5.7 g/dL (6.4-8.2)
--- NOTE | 2021-07-01 06:24 | NUR ---
SPOKE TO DR QUESADA RE PT'S k+ OF 2.9, SHE STATES SHE WILL PUT IN SOME ORDERS.
--- NOTE | 2021-07-01 07:38 | NUR ---
SHIFT SUMMARY A/OX4, NO C/O NAUSEA AND NO STOOLS THIS SHIFT, MEDICATED WITH TYLENOL FOR PAIN AND PT REFUSED NORCO, ASSISTED TO BSC AND PT WAS WEAK WHEN UP, RILEY CATHETER PATENT AND DRAINING YELLOW URINE, POTASSIUM WAS LOW THIA AM AND BRAD COLEMAN MADE MD AWARE AND NEW ORDERS WERE RECIEVED. NO DISTRESS THIS SHIFT.
--- NOTE | 2021-07-01 17:02 | NUR ---
PT IS A/OX3, PLEASANT AND COOPERATVE. PT REPORTED THAT SHE SLEPT WELL THROUGH THE NIGHT. THE PT WAS MEDICATED FOR CHRONIC PAIN DUE TO ARTHRITIS THIS AM WITH TYLENOL. THE PT APPEARS TO BE BREATHING EASILY ON RA AT THIS TIME. THE PT WAS UP IN THE CHAIR TODAY. NO LOOSE STOOLS REPORTED TODAY. PHYSICAL AND OCCUPATIONAL THERAPY CONSULTED ON THE PT TODAY. THE PT TOLERATED IT WELL. CALL LIGHT IN REACH, WILL CONTINUE TO MONITOR AND ASSESS FOR CHANGES
[2021-07-01] MEDS ORDERED: HIPREX1 G1 PO (19:17)
[2021-07-01] MEDS ORDERED: ESCI10 PO (19:18)
[2021-07-01] MEDS ORDERED: Robaxin750 MG PO (19:18)
[2021-07-01] MEDS ORDERED: OXYB5 PO (19:20)
--- NOTE | 2021-07-02 04:58 | NUR ---
SHIFT SUMMARY PT A/O X4, NO C/O NAUSEA OR ABD PAIN , GENERALIZED WEAKNESS NOTED WHEN UP, WITH ONE ASSIST, DR. QUESADA MADE AWARE THAT PT USES A CPAP AT HOME AND IS REQUESTING TO USE HERE AND RECEIVED NEW ORDER FOR, PT TOLERATED CPAP WITHOUT DIFFICULTY, MEDICATED X1 WITH XANAX FOR REST/ANXIOUS AND MED WAS EFFECTIVE, NO ACUTE DISTRESS NOTED.
[2021-07-02 07:56] LABS: Anion Gap 5 mmol/L (6-16); Blood Urea Nitrogen 4 mg/dL (8-24); CO2, Blood 25 mmol/L (21-32); Calcium, Blood 8.4 mg/dL (8.5-10.1); Chloride, Blood 104 mmol/L (98-108); Creatinine, Blood 0.36 mg/dL (0.40-1.00); Glomerular Filtration Rate >60 (60-); Glucose, Blood 127 mg/dL (70-99); Potassium, Blood 3.8 mmol/L (3.5-5.5); Sodium, Blood 134 mmol/L (136-145)
--- NOTE | 2021-07-02 08:46 | NUR ---
DR. NIEVES WAS NOTIFIED THAT PATIENT FELT SLIGHTLY CONSTIPATED AND WANTED STOOL SOFTNER. PROVIDER WAS NOTIFIED OF CURRENT POTASSIUM LEVEL OF 3.8. PROVIDER HUNG UP/GOT DISCONNECTED AND MAY OR MAY NOT PLACE ORDERS.
--- NOTE | 2021-07-02 15:20 | NUR ---
GIVEN WRITTEN AND VERBAL; EDUCATION. PATIENT HAS NO QUESTIONS. TRANSPORTED BY IN CAR
--- NOTE | 2021-07-02 17:15 | NUR ---
Per chart review with Dr. Tracy, patient appropriate for discharge home. Patient to discharge home with home health services from [facility]. Patient choice and IMM signed, placed in patient chart. This [facility] CM scheduled hospital follow up with patient's PCP, Dr. Miguel Jacob on july 07 at 10:40am. Patient's to provide discharge transportation. Patient's nurse consulted regarding discharge plan. All agreeable to discharge plan, deny barriers to discharge.
== END 2021-07-02 15:00 | disposition home health service (06) | DRG 392 ==
LOC: ER 23:14 → MEDS 06-28 03:50
PROVIDERS: Emergency Medicine; Internal Medicine; Internal Medicine Gastroenterology; Student in an Organized Health Care Education/Training Program; ADMIT Internal Medicine
PROC: 0DJ08ZZ Inspection of Upper Intestinal Tract, Via Natural or Artificial Opening Endoscopic (ICD-10-PCS; principal; 2021-06-28 18:30)
DX: A08.11 Acute gastroenteropathy due to Norwalk agent (principal); D62 Acute posthemorrhagic anemia; F11.20 Opioid dependence, uncomplicated; E87.1 Hypo-osmolality and hyponatremia; K92.1 Melena; Z20.822 Contact with and (suspected) exposure to COVID-19; E87.6 Hypokalemia; K59.00 Constipation, unspecified; D72.819 Decreased white blood cell count, unspecified; I48.0 Paroxysmal atrial fibrillation; E11.9 Type 2 diabetes mellitus without complications; I10 Essential (primary) hypertension; G89.4 Chronic pain syndrome; G47.33 Obstructive sleep apnea (adult) (pediatric); Z28.21 Immunization not carried out because of patient refusal; Z98.84 Bariatric surgery status; Z79.01 Long term (current) use of anticoagulants; Z88.2 Allergy status to sulfonamides; Z88.6 Allergy status to analgesic agent; Z90.49 Acquired absence of other specified parts of digestive tract; Z88.8 Allergy status to other drugs, medicaments and biological substances; Z79.899 Other long term (current) drug therapy; Z98.890 Other specified postprocedural states
CPT/HCPCS: 0097U; 0241U; 36415; 51702; 74177; 80048; 80053; 82272; 82607; 82728; 82746; 82947; 83540; 83550; 83735; 83880; 85014; 85018; 85025; 85027; 86850; 86900; 86901; 93005; 93010; 94660; 94762; 96374; 96375; 96376; 97116; 97162; 97165; 97535; 99285-25; A9270; C9113; G0378; J2405; J2704; J2916; J3480; J7030; J7120; Q9967

== ENCOUNTER 2021-10-11 13:46 | Emergency (ER) | payer OTHER ==
[~2021-10-11] VITALS: Ht 167.6 cm; Wt 59.0 kg
[~2021-10-11 13:46] MED LIST changes: +ESCI10 PO
[2021-10-11 14:13] LABS: BASOPHILS ABSOLUTE AUTO 0.07 K/mm3 (0.00-0.23); BASOPHILS PERCENT AUTO 1 % (0-2); EOSINOPHILS ABSOLUTE AUTO 0.24 K/mm3 (0.00-0.68); EOSINOPHILS PERCENT AUTO 5 % (0-6); Hematocrit 37.3 % (33.0-51.0); Hemoglobin 12.8 g/dL (11.5-16.0); IMMATURE GRAN ABSOLUTE AUTO 0.02 K/mm3 (0.00-0.10); IMMATURE GRAN PERCENT AUTO 0 % (0-1); LYMPHOCYTES ABSOLUTE AUTO 1.58 K/mm3 (0.84-5.20); LYMPHOCYTES PERCENT AUTO 33 % (21-46); MONOCYTES ABSOLUTE AUTO 0.49 K/mm3 (0.16-1.47); MONOCYTES PERCENT AUTO 10 % (4-13); Mean Corpuscular HGB 29.3 pg (26.0-34.0); Mean Corpuscular HGB Conc 34.3 g/dL (31.5-36.5); Mean Corpuscular Volume 85 fL (80-100); Mean Platelet Volume 8.7 fL (9.1-12.4); NEUTROPHILS ABSOLUTE AUTO 2.46 K/mm3 (1.96-9.15); NEUTROPHILS PERCENT AUTO 51 % (41-73); Platelet Count 220 K/mm3 (150-400); RDW Coefficient Variation 14.6 % (11.7-14.2); Red Blood Cell Count 4.37 M/mm3 (3.80-5.20); White Blood Cell Count 4.86 K/mm3 (4.00-11.30)
[2021-10-11 14:35] LABS: Albumin, Blood 4.1 g/dL (3.4-5.0); Albumin/Globulin Ratio 1.4 (0.8-1.8); Bilirubin, Total 0.6 mg/dL (0.1-1.0); Bun/Creatinine Ratio 17.1 (12.0-20.0); Calcium, Blood 8.7 mg/dL (8.5-10.1); Creatinine, Blood 0.47 mg/dL (0.40-1.00); Potassium, Blood 4.6 mmol/L (3.5-5.5); Total Protein, Blood 7.1 g/dL (6.4-8.2)
[2021-10-11 16:32] LABS: Source, Urine Clean Catch
[2021-10-11 16:37] LABS: Appearance, Urine Hazy (Clear); Bilirubin, Urine Neg (Neg); Blood, Urine 1+ (Neg); Glucose Qualitative, Urine Neg (Neg); Ketones, Urine Neg (Neg); Leukocyte Esterase, Urine 1+ (Neg); Nitrite, Urine Pos (Neg); Protein, Urine Neg (Neg); Specific Gravity, Urine 1.005 (1.003-1.022); Urobilinogen, Urine NORM (Normal)
[2021-10-11 16:43] LABS: Color, Urine Pale Yellow (P-Yellow)
[2021-10-11 16:44] LABS: Bacteria Many /hpf; Squamous Epithelial Cells Rare /hpf (Few)
[2021-10-11] MEDS ORDERED: CEFD300 PO (17:33)
== END 2021-10-11 18:10 | disposition home or self-care (01) ==
LOC: ER 13:46
PROVIDERS: Physician Assistant
DX: R42 Dizziness and giddiness (principal); R33.9 Retention of urine, unspecified; I10 Essential (primary) hypertension; E11.9 Type 2 diabetes mellitus without complications; Z88.6 Allergy status to analgesic agent; Z88.2 Allergy status to sulfonamides; Z88.8 Allergy status to other drugs, medicaments and biological substances; Z79.899 Other long term (current) drug therapy
CPT/HCPCS: 71045; 80053; 81001; 82947; 83880; 84484; 85025; J0696

== ENCOUNTER → 2021-11-17 | Outpatient (CLI) | payer OTHER ==
[~2021-11-17] MED LIST changes: +CEFD300 PO
[2021-11-17 11:26] LABS: Source, Urine Clean Catch
[2021-11-17 12:36] LABS: Appearance, Urine Clear (Clear); Bilirubin, Urine Neg (Neg); Blood, Urine 2+ (Neg); Color, Urine Yellow (P-Yellow); Glucose Qualitative, Urine Neg (Neg); Ketones, Urine Neg (Neg); Leukocyte Esterase, Urine 3+ (Neg); Nitrite, Urine Neg (Neg); Protein, Urine Neg (Neg); Urobilinogen, Urine NORM (Normal)
[2021-11-17 13:45] LABS: Bacteria Many /hpf; Squamous Epithelial Cells Rare /hpf (Few); White Blood Cells, Urine TNTC /hpf (0-5)
== END | disposition home or self-care (01) ==
LOC: LAB SHORT 05:00 → LAB 05:00 → EDSTATUS 10-23 07:30 → LAB FUT 10-23 07:30
PROVIDERS: Urology Female Pelvic Medicine and Reconstructive Surgery
DX: N39.0 Urinary tract infection, site not specified (principal)
CPT/HCPCS: 81001; 87086

== ENCOUNTER 2022-02-19 19:20 | Emergency (ER) | payer OTHER ==
[~2022-02-19] VITALS: Ht 167.6 cm; Wt 63.5 kg
[2022-02-19 20:50] LABS: Source, Urine Clean Catch
[2022-02-19 20:53] LABS: Appearance, Urine Clear (Clear); Bilirubin, Urine Neg (Neg); Blood, Urine 2+ (Neg); Glucose Qualitative, Urine Neg (Neg); Ketones, Urine Neg (Neg); Leukocyte Esterase, Urine 3+ (Neg); Nitrite, Urine Neg (Neg); Protein, Urine Neg (Neg); Specific Gravity, Urine 1.005 (1.003-1.022); Urobilinogen, Urine NORM (Normal)
[2022-02-19 20:57] LABS: BASOPHILS ABSOLUTE AUTO 0.04 K/mm3 (0.00-0.23); BASOPHILS PERCENT AUTO 1 % (0-2); EOSINOPHILS ABSOLUTE AUTO 0.25 K/mm3 (0.00-0.68); EOSINOPHILS PERCENT AUTO 4 % (0-6); Hematocrit 32.6 % (33.0-51.0); Hemoglobin 11.6 g/dL (11.5-16.0); IMMATURE GRAN ABSOLUTE AUTO 0.03 K/mm3 (0.00-0.10); IMMATURE GRAN PERCENT AUTO 1 % (0-1); LYMPHOCYTES ABSOLUTE AUTO 1.66 K/mm3 (0.84-5.20); LYMPHOCYTES PERCENT AUTO 29 % (21-46); MONOCYTES ABSOLUTE AUTO 0.62 K/mm3 (0.16-1.47); MONOCYTES PERCENT AUTO 11 % (4-13); Mean Corpuscular HGB 30.5 pg (26.0-34.0); Mean Corpuscular HGB Conc 35.6 g/dL (31.5-36.5); Mean Corpuscular Volume 86 fL (80-100); Mean Platelet Volume 9.2 fL (9.1-12.4); NEUTROPHILS ABSOLUTE AUTO 3.07 K/mm3 (1.96-9.15); NEUTROPHILS PERCENT AUTO 54 % (41-73); Platelet Count 230 K/mm3 (150-400); RDW Coefficient Variation 13.2 % (11.7-14.2); RDW Standard Deviation 41.2 fL (35.1-46.3); White Blood Cell Count 5.67 K/mm3 (4.00-11.30)
[2022-02-19 20:58] LABS: Color, Urine Pale Yellow (P-Yellow)
[2022-02-19 21:00] LABS: Bacteria Mod /hpf; Squamous Epithelial Cells Many /hpf (Few)
[2022-02-19 21:01] LABS: Renal Epithelial Rare /hpf (0-Rare)
[2022-02-19 21:10] LABS: International Normalized Ratio 1.34; Prothrombin Time Results 13.8 Sec (9.7-11.5)
[2022-02-19 21:12] LABS: Albumin, Blood 4.1 g/dL (3.4-5.0); Albumin/Globulin Ratio 1.5 (0.8-1.8); Bilirubin, Total 0.4 mg/dL (0.1-1.0); Bun/Creatinine Ratio 20.5 (12.0-20.0); Calcium, Blood 8.9 mg/dL (8.5-10.1); Creatinine, Blood 0.54 mg/dL (0.40-1.00); Globulin, Blood 2.8 g/dL (2.2-4.0); Potassium, Blood 4.4 mmol/L (3.5-5.5); Total Protein, Blood 6.9 g/dL (6.4-8.2)
== END 2022-02-19 23:43 | disposition home or self-care (01) ==
LOC: ER 19:20
PROVIDERS: Physician Assistant
DX: S09.90XA Unspecified injury of head, initial encounter (principal); I10 Essential (primary) hypertension; E11.9 Type 2 diabetes mellitus without complications; E87.1 Hypo-osmolality and hyponatremia; W19.XXXA Unspecified fall, initial encounter; Z88.2 Allergy status to sulfonamides; Z88.6 Allergy status to analgesic agent; Z88.8 Allergy status to other drugs, medicaments and biological substances; Z79.899 Other long term (current) drug therapy
CPT/HCPCS: 36415; 70450; 72125; 80053; 81001; 85025; 85610; 87077; 87086; 87186; 93005; 93010

== ENCOUNTER 2023-02-17 10:38 | Inpatient (IN) | payer OTHER ==
[~2023-02-17] VITALS: Ht 167.6 cm; Wt 59.2 kg
[2023-02-17 11:24] LABS: BASOPHILS ABSOLUTE AUTO 0.02 K/mm3 (0.00-0.23); BASOPHILS PERCENT AUTO 0 % (0-2); EOSINOPHILS ABSOLUTE AUTO 0.01 K/mm3 (0.00-0.68); EOSINOPHILS PERCENT AUTO 0 % (0-6); Hematocrit 23.1 % (33.0-51.0); Hemoglobin 7.8 g/dL (11.5-16.0); IMMATURE GRAN ABSOLUTE AUTO 0.03 K/mm3 (0.00-0.10); IMMATURE GRAN PERCENT AUTO 1 % (0-1); LYMPHOCYTES PERCENT AUTO 17 % (21-46); MONOCYTES ABSOLUTE AUTO 0.36 K/mm3 (0.16-1.47); MONOCYTES PERCENT AUTO 5 % (4-13); Mean Corpuscular HGB 28.3 pg (26.0-34.0); Mean Corpuscular HGB Conc 33.8 g/dL (31.5-36.5); Mean Corpuscular Volume 84 fL (80-100); Mean Platelet Volume 9.2 fL (9.1-12.4); NEUTROPHILS ABSOLUTE AUTO 5.11 K/mm3 (1.96-9.15); NEUTROPHILS PERCENT AUTO 77 % (41-73); Platelet Count 215 K/mm3 (150-400); RDW Coefficient Variation 13.3 % (11.7-14.2); RDW Standard Deviation 40.7 fL (35.1-46.3); Red Blood Cell Count 2.76 M/mm3 (3.80-5.20); White Blood Cell Count 6.63 K/mm3 (4.00-11.30)
[2023-02-17 11:41] LABS: International Normalized Ratio 1.09; Prothrombin Time Results 11.4 Sec (9.7-11.5)
[2023-02-17 12:06] LABS: Albumin, Blood 3.5 g/dL (3.4-5.0); Albumin/Globulin Ratio 1.3 (0.8-1.8); Bilirubin, Direct 0.1 mg/dL (0.0-0.3); Bilirubin, Indirect 0.2 mg/dL (0.1-0.7); Bilirubin, Total 0.3 mg/dL (0.1-1.0); Bun/Creatinine Ratio 28.1 (12.0-20.0); Calcium, Blood 8.9 mg/dL (8.5-10.1); Creatinine, Blood 0.61 mg/dL (0.40-1.00); Globulin, Blood 2.6 g/dL (2.2-4.0); Potassium, Blood 5.3 mmol/L (3.5-5.5); Total Protein, Blood 6.1 g/dL (6.4-8.2)
[2023-02-17] MEDS ORDERED: GABA100 PO (12:52)
[2023-02-17] MEDS ORDERED: AMLO10 PO (15:28)
[2023-02-17] MEDS ORDERED: CATAPRES0.1 MG PO (15:29)
[2023-02-17] MEDS ORDERED: FURO20 PO (15:30)
[2023-02-17] MEDS ORDERED: Norco 5-325 MG PO (15:31)
[2023-02-17] MEDS ORDERED: LOSA50 PO (15:32)
[2023-02-17] MEDS ORDERED: METO10 PO (15:33)
[2023-02-17] MEDS ORDERED: OMEP20ER PO (15:34)
[2023-02-17] MEDS ORDERED: Oxybutynin Chlor5 M1 PO (15:35)
[2023-02-17] MEDS ORDERED: TRAZ100 PO (15:36)
[2023-02-17 18:07] VITALS: BP 133/59
[2023-02-17 18:26] LABS: BASOPHILS ABSOLUTE AUTO 0.03 K/mm3 (0.00-0.23); BASOPHILS PERCENT AUTO 0 % (0-2); EOSINOPHILS ABSOLUTE AUTO 0.01 K/mm3 (0.00-0.68); EOSINOPHILS PERCENT AUTO 0 % (0-6); Hematocrit 21.1 % (33.0-51.0); Hemoglobin 7.3 g/dL (11.5-16.0); IMMATURE GRAN ABSOLUTE AUTO 0.04 K/mm3 (0.00-0.10); IMMATURE GRAN PERCENT AUTO 1 % (0-1); LYMPHOCYTES ABSOLUTE AUTO 1.77 K/mm3 (0.84-5.20); LYMPHOCYTES PERCENT AUTO 21 % (21-46); MONOCYTES ABSOLUTE AUTO 0.55 K/mm3 (0.16-1.47); MONOCYTES PERCENT AUTO 7 % (4-13); Mean Corpuscular HGB 28.9 pg (26.0-34.0); Mean Corpuscular HGB Conc 34.6 g/dL (31.5-36.5); Mean Corpuscular Volume 83 fL (80-100); Mean Platelet Volume 8.8 fL (9.1-12.4); NEUTROPHILS ABSOLUTE AUTO 6.03 K/mm3 (1.96-9.15); NEUTROPHILS PERCENT AUTO 72 % (41-73); Platelet Count 208 K/mm3 (150-400); RDW Coefficient Variation 13.3 % (11.7-14.2); RDW Standard Deviation 40.3 fL (35.1-46.3); Red Blood Cell Count 2.53 M/mm3 (3.80-5.20); White Blood Cell Count 8.43 K/mm3 (4.00-11.30)
--- NOTE | 2023-02-17 18:45 | NUR ---
Received pt from ED at 1755 awake and alert x3. VSS. Declines pain med for lower abd pain /. Up from stretcher to bsc with min ast. Voiding yellow output. Resp even nonlabored on RA. Oriented to room and call light. Fall prec in place. Will continue to monitor this shift.
[2023-02-17 18:46] LABS: Bun/Creatinine Ratio 23.1 (12.0-20.0); Calcium, Blood 8.2 mg/dL (8.5-10.1); Creatinine, Blood 0.56 mg/dL (0.40-1.00)
[2023-02-17 19:12] VITALS: BP 156/55
[2023-02-17] MEDS ORDERED: ZYRTEC10 M2 PO (20:27)
[2023-02-17] MEDS ORDERED: FLUT.05NI (20:31)
[2023-02-17] MEDS ORDERED: ONDA4ODT PO (20:33)
[2023-02-17] MEDS ORDERED: HYDROCODONE-AC1 EA19 PO (20:34)
[2023-02-18] VITALS (9 sets, daily range): BP systolic 120–157; BP diastolic 48–71
--- NOTE | 2023-02-18 05:49 | NUR ---
END OF SHIFT SUMMARY PT A&O x4, VSS, AFEBRILE. PT TOLERATED CPAP MACHINE OVERNIGHT. PT ANXIOUS, THIS AUTHOR STAYED AT BEDSIDE, VISITED WITH PT AND PROVIDED A FOOT RUB TO TRY TO RELAX PT. PT SLEPT ON AND OFF THROUGHOUT THE SHIFT. PAIN MANAGED WITH PRN NORCO AND ADDITIONAL SLEEP AIDS GIVEN. PT 1-2 NV TRANSFER TO [facility], WEAK GAIT NOTED. PT FEARFUL OF FALLING. PAIN LOCATED TO LLQ AND RLQ ABD REGION. PT ABLE TO MAKE NEEDS KNOWN. PT PLEASANT AND COOPERATIVE WITH CARE PROVIDED. CALL LIGHT WITHIN REACH, WCTM.
[2023-02-18 06:18] LABS: BASOPHILS ABSOLUTE AUTO 0.02 K/mm3 (0.00-0.23); BASOPHILS PERCENT AUTO 1 % (0-2); EOSINOPHILS ABSOLUTE AUTO 0.02 K/mm3 (0.00-0.68); EOSINOPHILS PERCENT AUTO 1 % (0-6); Hematocrit 19.9 % (33.0-51.0); Hemoglobin 6.7 g/dL (11.5-16.0); IMMATURE GRAN ABSOLUTE AUTO 0.01 K/mm3 (0.00-0.10); IMMATURE GRAN PERCENT AUTO 0 % (0-1); LYMPHOCYTES PERCENT AUTO 18 % (21-46); MONOCYTES ABSOLUTE AUTO 0.36 K/mm3 (0.16-1.47); MONOCYTES PERCENT AUTO 8 % (4-13); Mean Corpuscular HGB 28.6 pg (26.0-34.0); Mean Corpuscular HGB Conc 33.7 g/dL (31.5-36.5); Mean Corpuscular Volume 85 fL (80-100); Mean Platelet Volume 9.5 fL (9.1-12.4); NEUTROPHILS ABSOLUTE AUTO 3.13 K/mm3 (1.96-9.15); NEUTROPHILS PERCENT AUTO 72 % (41-73); Platelet Count 184 K/mm3 (150-400); RDW Coefficient Variation 13.8 % (11.7-14.2); RDW Standard Deviation 42.8 fL (35.1-46.3); Red Blood Cell Count 2.34 M/mm3 (3.80-5.20); White Blood Cell Count 4.34 K/mm3 (4.00-11.30)
[2023-02-18 06:54] LABS: Albumin, Blood 3.3 g/dL (3.4-5.0); Albumin/Globulin Ratio 1.4 (0.8-1.8); Bilirubin, Total 0.3 mg/dL (0.1-1.0); Bun/Creatinine Ratio 21.1 (12.0-20.0); Calcium, Blood 8.3 mg/dL (8.5-10.1); Creatinine, Blood 0.62 mg/dL (0.40-1.00); Globulin, Blood 2.4 g/dL (2.2-4.0); Total Protein, Blood 5.7 g/dL (6.4-8.2)
--- NOTE | 2023-02-18 15:40 | NUR ---
Pt. is awake in her bed and welcomes my visit. Pt. is pleasant. Facilitate a life review. Pt. verbalizes that she is alone and that her children are not in town. Listen with empathy , interest, and a calming presence. Pt. displayed evidence of being engaged and aware. Prayed with Pt. Pt. verbalized gratitude for the spiritual care visit.
--- NOTE | 2023-02-18 18:13 | NUR ---
SHIFT SUMMARY Pt remains A&Ox3 this shift. VSS. 1U PRBC transfused. Up to BSC with 1 person ast. Voiding without difficulty. Per RACE CAR DRIVER 1 unformed BM this am with dark red blood in stool. Home meds taken home with spouse and friend. GI consult noted with Dr. shearer of consult. Safety maintained. No c/o verbalized at this time. Will continue to monitor.
[2023-02-19 04:49] VITALS: BP 160/70
--- NOTE | 2023-02-19 05:23 | NUR ---
SUMMARY PT SITTING UP ON THE COMMODE, PT SLEPT OFF AND ON T/O THE NIGHT, PT HAD BOWEL PREP FOR COLONOSCOPY AT THE BEGINNING OF THE SHIFT AND HAS HAD SEVERAL LOOSE MAROON STOOLS, PT WORE THE CPAP FOR A SHORT TIME, DR MAYERS DID STOP BY TO SEE THE PT LAST NIGHT, PT STILL WITH MAROON STOOL THIS MORNING, ADDITIONAL MIRALAX AND FLEETS ENEMA GIVEN PER DR MAYERS, WILL CONT TO MONITOR
[2023-02-19 05:57] LABS: BASOPHILS ABSOLUTE AUTO 0.03 K/mm3 (0.00-0.23); BASOPHILS PERCENT AUTO 0 % (0-2); EOSINOPHILS ABSOLUTE AUTO 0.02 K/mm3 (0.00-0.68); EOSINOPHILS PERCENT AUTO 0 % (0-6); Hematocrit 29.7 % (33.0-51.0); Hemoglobin 10.2 g/dL (11.5-16.0); IMMATURE GRAN ABSOLUTE AUTO 0.02 K/mm3 (0.00-0.10); IMMATURE GRAN PERCENT AUTO 0 % (0-1); LYMPHOCYTES PERCENT AUTO 22 % (21-46); MONOCYTES ABSOLUTE AUTO 0.54 K/mm3 (0.16-1.47); MONOCYTES PERCENT AUTO 8 % (4-13); Mean Corpuscular HGB 29.5 pg (26.0-34.0); Mean Corpuscular HGB Conc 34.3 g/dL (31.5-36.5); Mean Corpuscular Volume 86 fL (80-100); NEUTROPHILS ABSOLUTE AUTO 4.61 K/mm3 (1.96-9.15); NEUTROPHILS PERCENT AUTO 69 % (41-73); NRBC ABSOLUTE 0.02 K/mm3 (0.00-0.02); NRBC Auto 0.3 /100 WBC (0.0-0.2); Platelet Count 237 K/mm3 (150-400); RDW Coefficient Variation 14.1 % (11.7-14.2); RDW Standard Deviation 43.2 fL (35.1-46.3); Red Blood Cell Count 3.46 M/mm3 (3.80-5.20); White Blood Cell Count 6.72 K/mm3 (4.00-11.30)
[2023-02-19 06:47] LABS: Alanine Aminotransfer (ALT/SGP 21 U/L (12-78); Albumin/Globulin Ratio 1.3 (0.8-1.8); Alk Phos 73 U/L (50-136); Anion Gap 10 mmol/L (6-16); Aspartate Aminotrans (AST/SGOT 15 U/L (12-37); Bilirubin, Total 0.9 mg/dL (0.1-1.0); Blood Urea Nitrogen 5 mg/dL (8-24); Bun/Creatinine Ratio 8.7 (12.0-20.0); C-REACTIVE PROTEIN, EXT RANGE <0.290 mg/dL (0.000-0.300); CO2, Blood 23 mmol/L (21-32); Calcium, Blood 8.9 mg/dL (8.5-10.1); Chloride, Blood 102 mmol/L (98-108); Creatinine, Blood 0.57 mg/dL (0.40-1.00); Glomerular Filtration Rate 91 (60-); Glucose, Blood 210 mg/dL (70-99); Potassium, Blood 2.8 mmol/L (3.5-5.5); Sodium, Blood 135 mmol/L (136-145)
[2023-02-19 08:15] VITALS: BP 131/68
--- NOTE | 2023-02-19 12:19 | NUR ---
DR STILL AND JESSICA RONDED ON PATIENT, PATIENT DRINKING SECOND GOLYTLE JUG, BM NO CLEAR, TO NOTIFY DR STILL SOON BM IS CLEAR, IVF STARTED, PATIENT EHAUSTED FROM TRANSFERING BED TO BSC, USES CALL LIGHT APPROPRIATELY
[2023-02-19 17:00] VITALS: BP 164/68
--- NOTE | 2023-02-19 18:23 | NUR ---
CHRISTI CUTEC CHANGES, BOWEL PREP UNSUCCESSFUL, BM STILL DARK BROWN, A FEW TIMES WITH FLAKES AND BM PIECES AND THEN BACK TO DARK BROWN, [address] RAVI, IF PATIENTS BM BECOMES CLEAR STOP PO WATER AND NOTIFY DR STILL. PATIEN IS EXHAUSTED FROM THE ACTIVIY, MEDICATED WITH PM XANAX EARLY, HELD AM MEDICATIONS FOR POSSIBLE SURGERY/SCOPE, MEDICATIONS TO BE EVALUATED AGAIN FOR NPO STATUS. POTASSIUM2.8, 20 MEQ IV GIVEN, WILL REALY TO PM RN
[2023-02-19 19:34] VITALS: BP 161/51
[2023-02-20] VITALS (39 sets, daily range): BP systolic 111–161; BP diastolic 47–110
--- NOTE | 2023-02-20 03:43 | NUR ---
RECEIVED CALL FROM TELEMETRY PT HEART RATE 150s. CHECKED ON PATIENT. PATIENT TRYING TO GET TO BATHROOM. HELPED PATIENT TO BSC. PATIENT STATED SHE DID NOT KNOW WHERE SHE WAS. PATIENT REORIENTET THAT SHE IS IN THE HOSPITAL. TELE CALLED AGAIN AND STATED SHE HAD CONVERTED TO AFIB. MD NOTIFIED. ORDER FOR 5 MG IV METOPROLOL GIVEN. BLOOD PRESSURE CHECKED AND IV METOPROLOL GIVEN. HEART RATE DECREASED. TELE STATED RHYTHM STILL AFIB BUT HEART RATE DECREASED. CONTINUE TO MONITOR.
[2023-02-20 04:53] LABS: BASOPHILS ABSOLUTE AUTO 0.03 K/mm3 (0.00-0.23); BASOPHILS PERCENT AUTO 1 % (0-2); EOSINOPHILS ABSOLUTE AUTO 0.02 K/mm3 (0.00-0.68); EOSINOPHILS PERCENT AUTO 0 % (0-6); Hematocrit 23.4 % (33.0-51.0); Hemoglobin 8.2 g/dL (11.5-16.0); IMMATURE GRAN ABSOLUTE AUTO 0.02 K/mm3 (0.00-0.10); IMMATURE GRAN PERCENT AUTO 0 % (0-1); LYMPHOCYTES ABSOLUTE AUTO 1.04 K/mm3 (0.84-5.20); LYMPHOCYTES PERCENT AUTO 18 % (21-46); MONOCYTES ABSOLUTE AUTO 0.52 K/mm3 (0.16-1.47); MONOCYTES PERCENT AUTO 9 % (4-13); Mean Corpuscular HGB 29.5 pg (26.0-34.0); Mean Corpuscular Volume 84 fL (80-100); Mean Platelet Volume 9.2 fL (9.1-12.4); NEUTROPHILS ABSOLUTE AUTO 4.22 K/mm3 (1.96-9.15); NEUTROPHILS PERCENT AUTO 72 % (41-73); Platelet Count 217 K/mm3 (150-400); RDW Coefficient Variation 13.9 % (11.7-14.2); RDW Standard Deviation 41.3 fL (35.1-46.3); Red Blood Cell Count 2.78 M/mm3 (3.80-5.20); White Blood Cell Count 5.85 K/mm3 (4.00-11.30)
[2023-02-20 05:34] LABS: Albumin, Blood 3.1 g/dL (3.4-5.0); Albumin/Globulin Ratio 1.2 (0.8-1.8); Bilirubin, Total 0.7 mg/dL (0.1-1.0); Bun/Creatinine Ratio 2.3 (12.0-20.0); Calcium, Blood 7.9 mg/dL (8.5-10.1); Creatinine, Blood 0.44 mg/dL (0.40-1.00); Globulin, Blood 2.5 g/dL (2.2-4.0); Potassium, Blood 2.1 mmol/L (3.5-5.5); Total Protein, Blood 5.6 g/dL (6.4-8.2)
[2023-02-20 06:05] LABS: Magnesium, Blood 1.7 mg/dL (1.6-2.4)
--- NOTE | 2023-02-20 06:26 | NUR ---
NOC SHIFT SUMMARY PT CONVERTED TO AFIB AROUND 0330. MD NOTIFIED. IV METOPROLOL GIVEN. FLUIDS RESTARTED AFTER PATIENT REQUESTED NOT TO HAVE FLUIDS. POTASSIUM CRITICAL VALUE BACK THIS AM AT 2.1. PO POTASSIUM AND IV POTASSIUM AND IV MAGNESIUM ORDERED. P STILL IN AFIB. ONE MORE DOSE OF IV METOPROLOL GIVEN. PAIENT STOOLS ARE CLEAR. MIRALAX GIVEN AT 0500. NO C/O PAIN. ALERT AND ORIENTED.
--- NOTE | 2023-02-20 09:32 | NUR ---
02/20/23 0932 Dao Lino HISTORY, CHART, MEDICATIONS AND ALLERGIES REVIEWED BEFORE START OF PROCEDURE. PATIENT CONFIRMS NPO STATUS AND AGREES WITH SCHEDULED PROCEDURE. 3-LEAD EKG REVIEWED WITH PHYSICIAN PRIOR TO START OF PROCEDURE. MONITOR INTACT WITH CONTINUOUS PULSE OXIMETRY,CAPNOGRAPHY, 3-LEAD EKG, INTERMITTENT BP. SUPPLEMENTAL O2 TO BE TITRATED THROUGHOUT PROCEDURE TO MAINTAIN O2 SATURATION ABOVE 90%. PATIENT DETERMINED TO BE ASA APPROPRIATE FOR PROPOFOL SEDATION PRIOR TO START OF PROCEDURE BY DR. MAYERS.
--- NOTE | 2023-02-20 18:16 | NUR ---
SHIFT SUMMARY PT AxOx4. PLEASANT AND COOPERATIVE WITH CARE. PT WENT FOR COLONOSCOPY THIS AM WITH DR MAYERS. NO SOURCE OF BLEEDING IDENTIFIED. PT BACK FROM RECOVERY AT APPROX 1100. PT ADVANCED DIET TO SOFT FOODS, LOW CHOLESTEROL AND HIGH FIBER WITH SOME REPORTED STOMACH UPSET. PT WAS MEDICATED x1 FOR NAUSEA WITH REPORTED RELIEF. PT'S HR CONVERTED FROM AFIB TO SINUS RHYTHYM TODAY. PT DENIES ANY CP/SOB THIS SHIFT. PT HAD IV POTASSIUM AND MAGNESIUM REPLACEMENT THIS SHIFT, WELL IV ABX AND FLUIDS RUNNING. PT CALLS APPROPRIATELY TO USE BSC WITH 1 ASSIST AND FWW. PT IS CURRENTLY RESTING IN BED EATING. EXPECTED DC BACK HOME TOMORROW PENDING LAB CORRECTIONS. PT HAS CALL LIGHT IN REACH. DENIES ANY NEEDS AT THIS TIME.
[2023-02-21 04:15] VITALS: BP 133/56
[2023-02-21 05:02] LABS: BASOPHILS ABSOLUTE AUTO 0.03 K/mm3 (0.00-0.23); BASOPHILS PERCENT AUTO 0 % (0-2); EOSINOPHILS ABSOLUTE AUTO 0.16 K/mm3 (0.00-0.68); EOSINOPHILS PERCENT AUTO 2 % (0-6); Hematocrit 23.5 % (33.0-51.0); Hemoglobin 8.1 g/dL (11.5-16.0); IMMATURE GRAN ABSOLUTE AUTO 0.02 K/mm3 (0.00-0.10); IMMATURE GRAN PERCENT AUTO 0 % (0-1); LYMPHOCYTES ABSOLUTE AUTO 1.17 K/mm3 (0.84-5.20); LYMPHOCYTES PERCENT AUTO 17 % (21-46); MONOCYTES ABSOLUTE AUTO 0.67 K/mm3 (0.16-1.47); MONOCYTES PERCENT AUTO 10 % (4-13); Mean Corpuscular HGB 29.3 pg (26.0-34.0); Mean Corpuscular HGB Conc 34.5 g/dL (31.5-36.5); Mean Corpuscular Volume 85 fL (80-100); Mean Platelet Volume 9.2 fL (9.1-12.4); NEUTROPHILS ABSOLUTE AUTO 4.81 K/mm3 (1.96-9.15); NEUTROPHILS PERCENT AUTO 70 % (41-73); Platelet Count 233 K/mm3 (150-400); RDW Coefficient Variation 14.6 % (11.7-14.2); RDW Standard Deviation 43.2 fL (35.1-46.3); Red Blood Cell Count 2.76 M/mm3 (3.80-5.20); White Blood Cell Count 6.86 K/mm3 (4.00-11.30)
--- NOTE | 2023-02-21 05:16 | NUR ---
NOC SHIFT SUMMARY: PT SLEPT WELL OVERNIGHT. HOPING TO GO HOME TODAY. NO C/O PAIN. UP WITH SBA TO BSC. LR AT 75 ML/HR.
[2023-02-21 05:45] LABS: Albumin/Globulin Ratio 1.2 (0.8-1.8); Bilirubin, Total 0.6 mg/dL (0.1-1.0); Bun/Creatinine Ratio 2.2 (12.0-20.0); Calcium, Blood 8.1 mg/dL (8.5-10.1); Creatinine, Blood 0.47 mg/dL (0.40-1.00); Globulin, Blood 2.6 g/dL (2.2-4.0); Phosphorus, Blood 2.4 mg/dL (2.5-4.9); Potassium, Blood 2.5 mmol/L (3.5-5.5); Total Protein, Blood 5.6 g/dL (6.4-8.2)
[2023-02-21 07:40] VITALS: BP 138/52
[2023-02-21 11:58] LABS: Calcium, Blood 8.3 mg/dL (8.5-10.1); Creatinine, Blood 0.49 mg/dL (0.40-1.00); Potassium, Blood 2.6 mmol/L (3.5-5.5)
[2023-02-21 16:29] VITALS: BP 133/49
--- NOTE | 2023-02-21 17:05 | NUR ---
SHIFT SUMMARY PT AOX4, SBA WITH THE FWW TO THE BR. PT MEDICATED FOR NAUSEA THIS SHIFT PER THE EMAR. POTASSIUM REPLACEMENT ALSO T/O THE SHIFT. NO OTHER COMPLAINTS. PT CALLS WELL AND MAKES HER NEEDS KNOWN. CALL LIGHT WITHIN REACH, BED IN THE LOWEST POSITION. WILL REPORT TO ONCOMING NURSE.
[2023-02-21 19:56] VITALS: BP 153/61
--- NOTE | 2023-02-22 03:59 | NUR ---
SHIFT SUMMARY A/OX4. ROOM AIR. CPAP AT NIGHT. LR INFUSING. PT REPORTS NO PAIN. ON A CLEAR LIQUID DIET, ORDER TO ADVANCE DIET. UNREMARKABLE SHIFT, PATIENT HAS SLEPT MAJORITY OF SHIFT. CONTINOUS PULSE OX MONITORING, HR AFIB CONTROLLED. ABLE TO MAKE NEEDS KNOWN. CALL LIGHT IN REACH. BED LOCKED IN LOW POSITION.
[2023-02-22 04:23] VITALS: BP 152/62
--- NOTE | 2023-02-22 04:30 | NUR ---
PT AMBULATED TO BATHROOM AND DESTATICIZER FEEDER CALLED TO NOTIFY THAT RHYM APPEARED TO BE IN AFIB IN THE 130'S. CAME BACK DOWN TO 90'S AFTERWARDS.
[2023-02-22 05:47] LABS: BASOPHILS ABSOLUTE AUTO 0.02 K/mm3 (0.00-0.23); BASOPHILS PERCENT AUTO 0 % (0-2); EOSINOPHILS ABSOLUTE AUTO 0.14 K/mm3 (0.00-0.68); EOSINOPHILS PERCENT AUTO 3 % (0-6); Hematocrit 23.4 % (33.0-51.0); Hemoglobin 8.2 g/dL (11.5-16.0); IMMATURE GRAN ABSOLUTE AUTO 0.02 K/mm3 (0.00-0.10); IMMATURE GRAN PERCENT AUTO 0 % (0-1); LYMPHOCYTES ABSOLUTE AUTO 0.99 K/mm3 (0.84-5.20); LYMPHOCYTES PERCENT AUTO 19 % (21-46); MONOCYTES ABSOLUTE AUTO 0.54 K/mm3 (0.16-1.47); MONOCYTES PERCENT AUTO 10 % (4-13); Mean Corpuscular Volume 86 fL (80-100); Mean Platelet Volume 9.4 fL (9.1-12.4); NEUTROPHILS ABSOLUTE AUTO 3.65 K/mm3 (1.96-9.15); NEUTROPHILS PERCENT AUTO 68 % (41-73); Platelet Count 246 K/mm3 (150-400); RDW Coefficient Variation 14.7 % (11.7-14.2); RDW Standard Deviation 44.2 fL (35.1-46.3); Red Blood Cell Count 2.73 M/mm3 (3.80-5.20); White Blood Cell Count 5.36 K/mm3 (4.00-11.30)
[2023-02-22 06:26] LABS: Bun/Creatinine Ratio 6.3 (12.0-20.0); Calcium, Blood 8.2 mg/dL (8.5-10.1); Creatinine, Blood 0.48 mg/dL (0.40-1.00); Potassium, Blood 2.7 mmol/L (3.5-5.5)
[2023-02-22 07:28] VITALS: BP 146/48
--- NOTE | 2023-02-22 14:13 | NUR ---
DISCHARGE NOTE PT DISCHARGED TO HOME, PICKED UP BY A FRIEND OF THE FAMILY. TAKEN TO THE VEHICLE BY WHEELCHAIR. IV REMOVED. DISCHARGE INFORMATION AND EDUCATION PROVIDED. PERSONAL BELONGINGS RETURNED. MEDICATIONS FAXED TO THE PHARMACY OF HER CHOICE.
== END 2023-02-22 13:46 | disposition home health service (06) | DRG 378 ==
LOC: ER 10:38 → MEDS 15:35 → ENPENDDIS 02-22 12:41 → MEDS 02-22 13:46
PROVIDERS: Family Medicine; Hospitalist; Internal Medicine Gastroenterology; Student in an Organized Health Care Education/Training Program; ADMIT Family Medicine
PROC: 5A09357 Assistance with Respiratory Ventilation, Less than 24 Consecutive Hours, Continuous Positive Airway Pressure (ICD-10-PCS; 2023-02-17)
PROC: 30233N1 Transfusion of Nonautologous Red Blood Cells into Peripheral Vein, Percutaneous Approach (ICD-10-PCS; 2023-02-18)
PROC: 0DBN8ZZ Excision of Sigmoid Colon, Via Natural or Artificial Opening Endoscopic (ICD-10-PCS; principal; 2023-02-20 09:00)
PROC: 0DBM8ZX Excision of Descending Colon, Via Natural or Artificial Opening Endoscopic, Diagnostic (ICD-10-PCS; 2023-02-20 09:00)
DX: K92.1 Melena (principal); D62 Acute posthemorrhagic anemia; E87.1 Hypo-osmolality and hyponatremia; E87.20 Acidosis, unspecified; K63.5 Polyp of colon; K63.89 Other specified diseases of intestine; G89.4 Chronic pain syndrome; G47.33 Obstructive sleep apnea (adult) (pediatric); I10 Essential (primary) hypertension; Z66 Do not resuscitate; E11.51 Type 2 diabetes mellitus with diabetic peripheral angiopathy without gangrene; E87.8 Other disorders of electrolyte and fluid balance, not elsewhere classified; I48.0 Paroxysmal atrial fibrillation; F41.9 Anxiety disorder, unspecified; N32.81 Overactive bladder; E11.42 Type 2 diabetes mellitus with diabetic polyneuropathy; M81.0 Age-related osteoporosis without current pathological fracture; F32.9 Major depressive disorder, single episode, unspecified; E87.6 Hypokalemia; Z88.2 Allergy status to sulfonamides; Z88.6 Allergy status to analgesic agent; Z88.8 Allergy status to other drugs, medicaments and biological substances; Z79.01 Long term (current) use of anticoagulants; Z96.82 Presence of neurostimulator; Z98.84 Bariatric surgery status; Z96.641 Presence of right artificial hip joint; Z79.899 Other long term (current) drug therapy; Z79.891 Long term (current) use of opiate analgesic; Z87.440 Personal history of urinary (tract) infections; Z85.028 Personal history of other malignant neoplasm of stomach
CPT/HCPCS: 36415; 36430; 51798; 74177; 80048; 80053; 80076; 82947; 83605; 83690; 83735; 84100; 85025; 85610; 85730; 86140; 86850; 86900; 86901; 86923; 88305; 93005; 93010; 94660; 94762; 96365-59; 96366; 96367; 96375; 97110; 97112; 97116; 97161; 97165; 97530; 97535; 99285-25; A9270; J0696; J1170; J2270; J2405; J2543; J2704; J3475; J3480; J7030; J7040; J7050; J7120; P9016; Q9967

== ENCOUNTER 2023-03-15 11:22 | Day surgery (SDC) | payer OTHER ==
[~2023-03-15] VITALS: Ht 167.6 cm; Wt 57.4 kg
[~2023-03-15 11:22] MED LIST changes: +AMLO10 PO; +CATAPRES0.1 MG PO; +FLUT.05NI; +GABA100 PO; +HYDROCODONE-AC1 EA19 PO; +METO10 PO; +Norco 5-325 MG PO; +ONDA4ODT PO; +Oxybutynin Chlor5 M1 PO; +TRAZ100 PO; +ZYRTEC10 M2 PO
--- NOTE | 2023-03-15 12:59 | NUR ---
03/15/23 1259 BETTY ALEX PT IV IS PERIPHERAL L FOREARM AND PATENT. RN NOTICED REDNESS AT SITE; ASSESSED CLOSELY AND PT DENIES ANY PAIN. PT STATES THAT SHE BRUICES AND TURNS RED WHENEVER SHE HAS IVS.
[2023-03-15 15:21] VITALS: BP 111/84
== END 2023-03-15 15:19 | disposition home or self-care (01) ==
LOC: ORSCSDS 11:22
PROVIDERS: Internal Medicine Gastroenterology
PROC: 0DBM8ZX Excision of Descending Colon, Via Natural or Artificial Opening Endoscopic, Diagnostic (ICD-10-PCS; principal; 2023-03-15 13:00)
PROC: 0DBK8ZX Excision of Ascending Colon, Via Natural or Artificial Opening Endoscopic, Diagnostic (ICD-10-PCS; principal; 2023-03-15 13:00)
PROC: 0DBN8ZX Excision of Sigmoid Colon, Via Natural or Artificial Opening Endoscopic, Diagnostic (ICD-10-PCS; principal; 2023-03-15 13:00)
DX: K62.5 Hemorrhage of anus and rectum (principal); D12.2 Benign neoplasm of ascending colon; D12.4 Benign neoplasm of descending colon; D12.5 Benign neoplasm of sigmoid colon; R10.31 Right lower quadrant pain; Z86.010 Personal history of colon polyps; I48.0 Paroxysmal atrial fibrillation; Z79.01 Long term (current) use of anticoagulants; Z79.899 Other long term (current) drug therapy
CPT/HCPCS: 82947; 88305; J0461; J2001; J2405; J2704; J7120; Q9968

== ENCOUNTER → 2023-05-23 | Outpatient (CLI) | payer OTHER | LOC: LAB SHORT 15:49 → LAB 15:49 | DX: N39.0 Urinary tract infection, site not specified (principal) | CPT/HCPCS: 87077; 87086; 87186 ==